=== PATIENT | male | born 1970 | race Caucasian/White ===

== ENCOUNTER 2020-02-15 12:06 | Emergency (ER) | payer BC ==
[2020-02-15 12:52] VITALS: BP 119/79
--- NOTE | 2020-02-15 13:05 | UC ---
Throat Pain/Nasal Kosta HPI - HPI Summary HPI Summary: scratched the back of his mouth on his denture --Sunday noticed pain and swelling on right side of throat---no fevers, cough, difficulty swallowing-- - History of Current Complaint Chief Complaint: UCGeneralIllness Stated Complaint: SWOLLEN GLAND Time Seen by Provider: 02/15/20 12:14 Hx Obtained From: Patient Onset/Duration: Sudden Onset, Lasting Days - 2 Pain Intensity: 5 Pain Scale Used: 0-10 Numeric Cough: None Associated Signs & Symptoms: Positive: Other - right anterior cervical gland swollen - Allergies/Home Medications Allergies/Adverse Reactions: Allergies Allergy/AdvReac Type Severity Reaction Status Date / Time No Known Allergies Allergy Verified 12/12/19 14:32 Home Medications: Home Medications Acetaminophen [Tylenol] 1,000 mg PO 02/15/20 [History] Clindamycin Cap(NF) [Clindamycin Cap 300 mg Cap(NF)] 300 mg PO Q6H #40 cap 02/14 [Rx] Ibuprofen TAB* [Motrin TAB* 400 MG] 400 mg 02/15/20 [History] PMH/Surg Hx/FS Hx/Imm Hx Previously Healthy: Yes - Surgical History Surgical History: None - Family History Known Family History: Positive: None - Social History Occupation: Works From/At Home Lives: With Family Alcohol Use: Weekly Substance Use Type: None Smoking Status (MU): Heavy Every Day Tobacco Smoker Amount Used/How Often: 0.75 packs Length of Time of Smoking/Using Tobacco: 30 years Have You Smoked in the Last Year: Yes Review of Systems All Other Systems Reviewed And Are Negative: Yes Constitutional: Positive: Negative Skin: Positive: Negative Eyes: Positive: Negative ENT: Positive: Other - right side of throat anterior cervical gland tender Respiratory: Positive: Negative Cardiovascular: Positive: Negative Gastrointestinal: Positive: Negative Genitourinary: Positive: Negative Motor: Positive: Negative Neurovascular: Positive: Negative Musculoskeletal: Positive: Negative Neurological/Mental Status: Positive: Negative Psychological: Positive: Negative Is Patient Immunocompromised?: No Physical Exam Triage Information Reviewed: Yes Appearance: Well-Appearing, No Pain Distress, Well-Nourished Vital Signs: Initial Vital Signs Temp 99.4 F 02/15/20 12:48 Pulse 96 02/15/20 12:48 Resp 16 02/15/20 12:48 BP 119/79 02/15/20 12:48 Pulse Ox 99 02/15/20 12:48 Vital Signs Reviewed: Yes Eye Exam: Normal Eyes: Positive: Conjunctiva Clear ENT Exam: Normal ENT: Positive: Normal ENT inspection, Hearing grossly normal, Pharyngeal erythema, TMs normal, Uvula midline. Negative: Nasal congestion, Tonsillar swelling, Tonsillar exudate, Trismus, Muffled voice, Hoarse voice, Dental tenderness Dental Exam: Normal Neck exam: Normal Neck: Positive: Supple, Nontender, Enlarged Nodes @ - minimal fullness right anterior cervical lymph Respiratory Exam: Normal Respiratory: Positive: Chest non-tender, Lungs clear, Normal breath sounds, No respiratory distress, No accessory muscle use Cardiovascular Exam: Normal Cardiovascular: Positive: RRR, No Murmur, Pulses Normal, Brisk Capillary Refill Musculoskeletal Exam: Normal Musculoskeletal: Positive: Strength Intact, ROM Intact, No Edema Neurological Exam: Normal Neurological: Positive: Alert, Muscle Tone Normal Psychological Exam: Normal Skin Exam: Normal Throat Pain/Nasal Course/Dx - Course Course Of Treatment: clindamycin, tylenol, ibuprofen increase fluids follow with pcp prn - Differential Dx/Diagnosis Provider Diagnosis: Lymphadenopathy of right cervical region, Acute tonsillitis Discharge ED - Sign-Out/Discharge Documenting (check all that apply): Patient Departure All imaging exams completed and their final reports reviewed: No Studies - Discharge Plan Condition: Stable Disposition: HOME Prescriptions: Clindamycin Cap(NF) [Clindamycin Cap 300 mg Cap(NF)] 300 mg PO Q6H #40 cap Patient Education Materials: Tonsillitis (ED) Referrals: Niko De Jesus MD [Primary Care Provider] - If Needed - Billing Disposition and Condition Condition: STABLE Disposition: Home - Attestation Statements Provider Attestation: I was available for consult. This patient was seen by the ANKIT. The patient was not presented to , seen by or examined by dc -Cynthia Smyth MD
== END 2020-02-15 13:25 | disposition home or self-care (01) ==
LOC: UCEAST 12:06
DX: J03.90 Acute tonsillitis, unspecified (principal); R59.0 Localized enlarged lymph nodes; F17.200 Nicotine dependence, unspecified, uncomplicated
CPT/HCPCS: 99212; G0463